=== PATIENT | female | born 1935 | race Caucasian/White ===

== ENCOUNTER 2022-11-06 17:55 | Emergency (ER) | payer MEDICARE ==
[2022-11-06] MEDS: Albuterol/Ipratropium 3.0-0.5 MG/3 ML Neb Soln NEB ONE ×2 (17:58→18:59)
[2022-11-06] MEDS ORDERED: Furosemide 40 MG/4 ML VIAL IVPUSH ONE ×2 (18:01→20:33)
[2022-11-06] MEDS ORDERED: Nitroglycerin 0.4 MG Tab.SL SL ONE (18:11)
[2022-11-06] MEDS: Nitroglycerin/D5W 25 MG/250 ML BOTTLE IV SCH ×2 (18:18→22:23)
[2022-11-06] MEDS ORDERED: Albuterol/Ipratropium 3.0-0.5 MG/3 ML Neb Soln NEB ONE (18:39)
[2022-11-06 18:44] LABS: ESTIMATED GFR 33 mL/min (>60)
[2022-11-06 18:50] LABS: BASE EXCESS VENOUS,POC -8 mmol/L (-2 - 3+); PCO2 VENOUS,POC 46 mmHg (41-51); PH VENOUS,POC 7.24 pH Units (7.32-7.43)
[2022-11-06] MEDS ORDERED: Aspirin 81 MG Tab.Chew PO ONE (19:32)
[2022-11-06 20:02] LABS: BASE EXCESS VENOUS,POC -4 mmol/L (-2 - 3+); PCO2 VENOUS,POC 45 mmHg (41-51)
[2022-11-06] MEDS ORDERED: Sodium Chloride 0.9% 10 ML Syringe FLUSH PRN (20:43)
[2022-11-06 20:57] LABS: CORONAVIRUS COVID-19 NAA NEGATIVE (NEGATIVE)
[2022-11-06] MEDS ORDERED: Heparin Sodium/0.45% NaCl 25,000 UNITS/500 ML BAG IV SCH (21:00)
[2022-11-06] MEDS ORDERED: Heparin Sodium 5,000 Units/ML Vial IVPUSH ONE (21:15)
== END 2022-11-06 22:24 ==
LOC: FB.ED 17:55
DX: J96.01 Acute respiratory failure with hypoxia (principal); J90 Pleural effusion, not elsewhere classified; I50.1 Left ventricular failure, unspecified; E87.20 Acidosis, unspecified; N17.9 Acute kidney failure, unspecified; R77.8 Other specified abnormalities of plasma proteins; R73.9 Hyperglycemia, unspecified; Z20.822 Contact with and (suspected) exposure to COVID-19
CPT/HCPCS: 0241U; 36415; 51702; 71045; 80053; 81001; 83605; 83735; 83880; 84484; 85025; 85610; 85730; 86140; 87040; 93005; 93010; 94640; 94660; 96365; 96375; 96376; 99285; 99285-25; A9270-GY; J1644; J1940; J3490; J7620